=== PATIENT | female | born 1970 | race Caucasian/White ===

== ENCOUNTER 2016-12-02 13:49 | Emergency (ER) | payer OTHER ==
[~2016-12-02] VITALS: Ht 165.1 cm; Wt 69.6 kg
[~2016-12-02 13:49] MED LIST: AGM875 PO; BCPILLS PO; CLX20 PO
[2016-12-02 13:55] VITALS: BP 140/83; PULSE 81; TEMP 36.9; O2SAT 98; Ht 165.1 cm; Wt 69.6 kg
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
== END 2016-12-02 14:25 | disposition home or self-care (01) ==
LOC: C.EDB 13:51 → C.EDC 14:25
DX: T81.4XXA Infection following a procedure, initial encounter (principal); T20.00XA Burn of unspecified degree of head, face, and neck, unspecified site, initial encounter; X19.XXXA Contact with other heat and hot substances, initial encounter; Z79.899 Other long term (current) drug therapy

== ENCOUNTER 2019-01-01 10:45 | Inpatient (IN) ==
[2019-01-01] MEDS ORDERED: AMPICILLIN/SULBACTAM SOD 3,000 MG in 0.9 % SODIUM CHLORIDE 100 ML IV STA (11:04)
[2019-01-01] MEDS ORDERED: SODIUM CHLORIDE 0.9% 1000ML 500 ML IV ONE (11:04)
[2019-01-01] MEDS ORDERED: ONDANSETRON INJ 2 MG/ML 2 ML VIAL IV STA (11:09)
[2019-01-01] MEDS ORDERED: MoRPHine SULFATE 4 MG/ML 1 ML CARP\\VIAL IV STA (11:09)
[2019-01-01 11:21] LABS: Hematocrit (blood only) 27.6 % (37-47); Hemoglobin 9.1 g/dL (12.0-16.0); Mean Corpuscular Hemoglobin 28.5 pg (25-34); Mean Corpuscular Volume 86.5 fL (80-100); Mean Platelet Volume 9.2 fL (7.4-10.4); Platelet Count 134 K/uL (130-400); RDW Coefficient of Variation 15.6 % (11.5-14.5); RDW Standard Deviation 47.7 fL (36.4-46.3); Red Blood Count 3.19 M/uL (4.2-5.4)
[2019-01-01 11:38] LABS: Albumin Level 3.9 gm/dl (3.4-5.0); BUN Creatinine Ratio 12.4 (10-20); Calcium 9.1 mg/dl (8.5-10.1); Creatinine Clr Calc Pharmacy 60.6 ml/min; Est GFR (African American) 79.5; Est GFR (Non-African American) 68.6; Potassium 3.7 mmol/L (3.5-5.1)
[2019-01-01 11:40] LABS: Bilirubin,Total 0.4 mg/dl (0.2-1); Globulin 3.8 gm/dl (2.5-4.0); Total Protein 7.7 gm/dl (6.4-8.2)
[2019-01-01 11:53] LABS: Basophils % (auto) 2.7 %; Dohle Bodies 1+; Immature Granulocytes # (auto) 0.05 K/uL (0.00-0.02); Immature Granulocytes % (auto) 1.4 %; Lymphocytes # (auto) 0.58 K/uL (1.2-3.4); Lymphocytes % (auto) 15.7 %; Monocytes # (auto) 0.63 K/uL (0.11-0.59); Neutrophils # (auto) 2.34 K/uL (1.4-6.5); Neutrophils % (auto) 63.2 %
--- NOTE | 2019-01-01 12:28 | XRay Report ---
RIGHT HAND 3 VIEWS HISTORY: Cat bite with infection COMPARISON: None. FINDINGS: There is no fracture or dislocation. Diffuse soft tissue swelling throughout the hand. Smal l superficial lucency along the dorsum of the hand which could represent a laceration. No radiopaque foreign bodies. IMPRESSION: Diffuse soft tissue swelling throughout the hand with a small superficial lucency along the dorsum of the hand which could represent a small laceration. Electronically signed by: Zeeshan Giron M.D. 01/01/2019 12:27 PM
[2019-01-01] MEDS ORDERED: MoRPHine SULFATE 2 MG/ML CARP IV STA (13:36)
[2019-01-01] MEDS ORDERED: MoRPHine SULFATE 4 MG/ML 1 ML CARP\\VIAL ONE (13:40)
--- NOTE | 2019-01-01 13:44 | History & Physical Report ---
Date of Service January 01, 2019 Assessment & Plan (1) Cat bite of hand: Received Unasyn in the emergency department We will continue with Unasyn on the floor [place] home dose for pain; Toradol for moderate pain; morphine for severe pain Orthopedics consulted for routine consult Serial labs (2) Breast cancer, left breast: Diagnosed in September [address] David Austin and Dr. Miguelina Harding Chemotherapy per Dr. 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 Panchal from neurology Most recent MRI from 2013 (5) Anemia: Slight drop in hemoglobin to 9.1 from his previous labs as an outpatient Most likely secondary to recent chemotherapy No acute blood loss We will follow daily CBC and trend (6) DVT prophylaxis: Enoxaparin 40 mg daily secondary to current cancer Ambulate as tolerated Please refer to Dr. Jimenez's addendum for further recommendations History of Present Illness Attending: Dr. Jimenez This is a 48-year-old female with a history of left breast cancer undergoing chemotherapy at this time. She also has a history of encephalitis as a child resulting in imbalance and some hearing problems. She has anxiety and depression for which she is on Celexa and BuSpar. 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 The patient is followed by Dr. Walker Lam as an outpatient for primary care and also follows Dr. David Austin for oncology. The patient presents today with a 27-hour history of Bite to the right hand. She indicates that the cat bit her and scratched her and that she treated with ice and with Tylenol since yesterday. She took no antibiotics or other medication. This morning she got up in the hand with significant more swollen and painful. She reported the emergency department and received Unasyn and morphine as well as an x-ray of the hand. The x-ray showed no foreign body. There is also no evidence of lesions requiring suturing. Ryan Lovett PA-C contacted Dr. Bardales from orthopedics who suggested admission with IV antibiotics. At this point he feels it is too early for abscess but would monitor closely. The patient denies fever, chills, sweats, rigors. She has no nausea or vomiting. She had no night chills last night. She does have significant pain to the hand and is unable to form her right hand into a fist. She was also unable to spread her fingers or close her fingers easily. She had one episode of diarrhea but no melena or hematochezia. No hx of GERD or PUD. Primary Care Provider: Walker Lam MD Allergies Allergy/AdvReac Type Severity Reaction Status Date / Time No Known Allergies Allergy Verified 11/18/09 08:20 Home Medications Home Medications Medication Instructions Recorded Confirmed Type Control Pills 1 tab PO DAILY #0 11/04/09 01/01/19 History Citalopram (Celexa *) 30 mg PO DAILY #0 11/04/09 01/01/19 History buspirone 5 mg PO DAILY 01/01/19 01/01/19 History hydroxyzine HCl 25 mg PO DAILY 01/01/19 01/01/19 History prochlorperazine maleate 10 mg PO DAILY 01/01/19 01/01/19 History sulindac 200 mg PO DAILY 01/01/19 01/01/19 History Past Med/Surg History Medical History Anxiety and depression Breast cancer History of encephalitis Situational hypertension Surgical History History of lumpectomy Family History Grandmother (Maternal) Breast cancer Social History Preferred Language: Persian Communication Ability: Effective Merchandising Assistant Required: No Beliefs That Will Affect Care: None marital status: Current Living Situation: Spouse and Family Current Living Situation Comment: and 2 sons Feels Safe at Home: Yes Safety Concerns: Feels Safe At This Time Smoking Status: Never smoker Hx Alcohol Use: No Hx Substance Use: No Review of Systems Review of Systems: All systems reviewed & are unremarkable except as noted in HPI & below Physical Exam Physical Exam: GENERAL : No acute distress. Pleasant EYES: No icterus, gaze conjugate. Pupils equal round reactive to light NOSE: No evidence of epistaxis. MOUTH: No lesions or candidiasis. No dentures. Tongue midline. Mucosa moist. NECK: Supple. No stridor or carotid bruits appreciated LUNGS: CTA B/L, no wheezes, rales or rhonchi. Good inspiratory effort. Equal breath sounds in the bases. HEART: Regular, rate controlled. No murmurs gallops or rubs ABDOMEN: Soft, NT, ND, BS Present. EXTREMITIES: No LE edema, pedal pulses intact intact and equal bilaterally. Ri ght hand swollen and evidence of recent injury from cat bite. Patient is able to move all 5 digits but unable to close hand completely. Flexion extension of the fingers is incomplete but patient does have good dexterity with rapid only movements of the fingers. Pulses are intact and equal bilaterally to upper extremities at the radial artery. No evidence of cyanosis on the right fingertips. Good capillary refill on all 5 fingertips on the right hand. NEURO: A&OX3. No focal deficits appreciated Results & Data Vital Signs (Past 12 Hours) Vital Signs Temp Pulse Pulse Resp BP BP Pulse Ox 01/01/19 13:37 76 18 109/71 99 01/01/19 10:49 36.9 C 81 20 101/71 100 Laboratory Results 01/01/19 11:10 01/01/19 11:10 Diagnostic Findings RIGHT HAND 3 VIEWS HISTORY: Cat bite with infection COMPARISON: None. FINDINGS: There is no fracture or dislocation. Diffuse soft tissue swelling throughout the hand. Small superficial lucency along the dorsum of the hand which could represent a laceration. No radiopaque foreign bodies. IMPRESSION: Diffuse soft tissue swelling throughout the hand with a small superficial lucency along the dorsum of the hand which could represent a small laceration. Electronically signed by: Zeeshan Giron M.D. 01/01/2019 12:27 PM Code Status & VTE Plan Code Status Full resuscitation VTE Prophylaxis Plan VTE Prophylaxis will be ordered: Yes Supervising Physician Co-Signing Physician Notes HISTORY: Record reviewed. Patient interviewed and examined. Care coordinated with Hakeem Spangler PA-C. Please refer to his documentation for complete history. Briefly, 48-year-old female undergoing chemotherapy for recently diagnosed carcinoma of the breast. Bitten by domestic cat on the right hand yesterday. The cat's vaccinations are current. Patient had a TD booster in 2018. Worsening pain and swelling of dorsum of right hand today. No fever. Came to ED for evaluation because of worsening symptoms. EXAM: General- no distress Extremities- puncture wounds, erythema, swelling of dorsum of right hand; no lymphangitic spread Neuro- alert, oriented DATA: Hemoglobin 9.1, white count 3700, platelet count 134,000. Normal electrolytes, BUN 12, creatinine 0.97, glucose 125. Serum lactate 1.93. Other lab studies as noted. X-ray of right hand demonstrated diffuse soft tissue swelling throughout the hand with a small superficial lucency along the dorsum of the hand. ASSESSMENT AND PLAN: Cat bite right hand with cellulitis. Does not appear to be septic. Blood cultures obtained. Parenteral antibiotic therapy with intravenous ampicillin/sulbactam initiated. Orthopedic Surgery consulted. Patient is up-to-date on TD booster. Hematology/oncology notified of admission. Please refer to WOLFGANG Spangler's documentation for discussion of other issues.
--- NOTE | 2019-01-01 14:26 | Emergency Department Note ---
History of Present Illness General Chief complaint: Animal Bite Stated complaint: CAT BITE TO RT HAND Time Seen by Provider: 01/01/19 10:55 History of Present Illness Maximum Pain Intensity: 2 48-year-old female who presents the emergency department for evaluation of progressively worsening redness, swelling and pain of the right hand. The patient reports that she was bitten by her cat early yesterday morning. She reports that by evening, there was swelling and redness present. The patient reports significant worsening symptoms this morning. She went to the [facility] [place] who sent her to the emergency department for further evaluation. She reports that the cat is strictly indoors, and immunizations are up-to-date. The patient does have a history of breast cancer, and is between chemotherapy sessions. The patient's tetanus immunization is up-to-date. Home Medications Home Medications Medication Instructions Recorded Confirmed Type Control Pills 1 tab PO DAILY #0 11/04/09 01/01/19 History Citalopram (Celexa *) 30 mg PO DAILY #0 11/04/09 01/01/19 History buspirone 5 mg PO DAILY 01/01/19 01/01/19 History hydroxyzine HCl 25 mg PO DAILY 01/01/19 01/01/19 History prochlorperazine maleate 10 mg PO DAILY 01/01/19 01/01/19 History sulindac 200 mg PO DAILY 01/01/19 01/01/19 History Allergies Allergy/AdvReac Type Severity Reaction Status Date / Time No Known Allergies Allergy Verified 11/18/09 08:20 Past Med/Surg History Medical History Anxiety and depression Breast cancer History of encephalitis Situational hypertension Surgical History History of lumpectomy Family History Grandmother (Maternal) Breast cancer Social History Preferred Language: Uzbek Communication Ability: Effective 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 Beliefs That Will Affect Care: None marital status: Current Living Situation: Spouse and Family Current Living Situation Comment: and 2 sons Feels Safe at Home: Yes Safety Concerns: Feels Safe At This Time Smoking Status: Never smoker Alcohol Use: No Hx Substance Use: No Review of Systems 10 system review was performed and was negative except for pertinent positives and negatives as indicated in history of present illness Physical Exam Vital Signs Vital Signs - 24 hr 01/01/19 10:49 01/01/19 13:37 Temperature 36.9 C Temperature Source Oral Sepsis Recent Fever Within 48 Hours No Sepsis New/Unexplained Change in Mental Status No Sepsis Action Taken by Nursing No Action Required Pulse Rate 81 Pulse Rate [Right Finger] 76 Pulse Rhythm [Right Finger] Regular Pulse Strength [Right Finger] Normal Respiratory Rate 20 18 Respiratory Effort / Characteristics Non-Labored Spontaneous Non-Labored Spontaneous Respiratory Depth Normal Normal Respiratory Pattern Regular Blood Pressure 101/71 Blood Pressure [Right Arm] 109/71 Blood Pressure Mean 81 Blood Pressure Mean [Right Arm] 83 Pulse Oximetry 100 99 Oxygen Delivery Method Room Air Room Air CONSTITUTIONAL: Healthy and well nourished. Alert and oriented X 3. Patient does not appear in any significant distress. HEENT: Normocephalic, atraumatic. Pupils equal, round and reactive. No scleral icterus or conjunctival injection/pallor. NECK: Full active range of motion without discomfort. RESPIRATORY: Clear to auscultation bilaterally with no wheezing, crackles, rhonchi or stridor. CARDIOVASCULAR: Regular rate and rhythm with no murmurs, rubs or gallops. MUSCULOSKELETAL: Examination of the right hand shows several puncture wounds on the dorsal aspect. The patient has significant erythema and edema to the extensor crease of the wrist. The patient has worsening discomfort with passive flexion and extension of the fingers, also extending to the extensor crease. No fusiform digital swelling. No purulent drainage from the wounds. No active bleeding. Capillary refill of the fingers is less than 2 seconds. INTEGUMENTARY: No rash or other significant dermatologic conditions noted. HEMATOLOGIC: No ecchymosis or petechiae. PSYCHIATRIC: Positive affect. NEUROLOGIC: Right hand and fingers are sensory intact. Course Patient history and physical exam were performed. Nurse's notes were reviewed. Vital signs were reviewed. Blood pressure, temperature and O2 saturation in triage was normal. After physical exam, I expressed my concern for a significant infection in the presence of cancer treatment and chemotherapy. I explained that her condition would probably warrant admission. The patient was in agreement and voiced understanding of my concerns. IV access was established, and labs were drawn. The patient was administered a normal saline 1 L bolus, along with IV morphine and Zofran for pain. Review of labs shows leukopenia without neutropenia. Hemoglobin is 9.1. CMP is otherwise grossly normal. Kilri-tw-hekr lactate was mildly elevated. Blood cultures x2 were collected. X-rays of the right hand did not show any radiopaque foreign bodies, fractures or dislocations. The patient was administered Unasyn 3 g IV infusion. The case was further discussed with Dr. Dukes, ED attending physician, who agrees with orthopedic and hospitalist consultation. I initially discussed the case with Dr. Bardales who does not feel that surgical intervention would be needed at this point. He did recommend hospitalist admission and management, consulting him for further orthopedic management. The case was then discussed with the [facility] hospitalist service (Hakeem Spangler PA-C), who [facility]. Please see the hospitalist service notes and orthopedic progress notes for further treatment and final disposition. The patient remained hemodynamically stable and afebrile while in the emergency department. Administered Medications Enoxaparin Sodium (Lovenox) 40 mg SQ Q24H LOBITO Stop: 01/31/19 16:29 Last Admin: 01/01/19 16:49 Dose: 40 mg Documented by: [id number] Ampicillin Sodium/Sulbactam Sodium 3,000 mg/ Sodium Chloride 108 mls @ 200 mls/hr IV Q6H [facility]; Protocol Stop: 01/11/19 17:59 Last Admin: 01/01/19 17:45 Dose: 200 mls/hr Documented by: [id number] Discontinued Medications Ampicillin Sodium/Sulbactam Sodium 3,000 mg/ Sodium Chloride 108 mls @ 200 mls/hr IV NOW STA Stop: 01/01/19 11:36 Last Infusion: 01/01/19 14:31 Dose: 0 mls/hr Documented by: [id number] Admin: 01/01/19 12:12 Dose: 200 mls/hr Documented by: [id number] Sodium Chloride (Nss 1000ml) 500 mls @ 999 mls/hr IV .Q31M ONE Stop: 01/01/19 11:34 Last Infusion: 01/01/19 12:13 Dose: 0 mls/hr Documented by: [id number] Admin: 01/01/19 11:28 Dose: 999 mls/hr Documented by: [id number] Morphine Sulfate (Morphine Sulfate) 4 mg IV NOW STA Stop: 01/01/19 11:10 Last Admin: 01/01/19 11:20 Dose: 4 mg Documented by: [id number] Morphine Sulfate (Morphine Sulfate) 2 mg IV NOW STA Stop: 01/01/19 13:37 Last Admin: 01/01/19 14:32 Dose: Not Given Documented by: [id number] Morphine Sulfate (Morphine Sulfate) Confirm Administered Dose 4 mg .ROUTE .STK- MED ONE Stop: 01/01/19 13:41 Last Admin: 01/01/19 13:43 Dose: 2 mg Documented by: [id number] Ondansetron HCl (Zofran) 4 mg IV NOW STA Stop: 01/01/19 11:10 Last Admin: 01/01/19 11:20 Dose: 4 mg Documented by: [id number] Medical Decision Making Medical Records Attestation: I reviewed the patient's medical records. Home Medications Current Medication List: was personally reviewed by me Laboratory Data Attestation: I reviewed the patient's lab results. Result diagrams: 01/01/19 11:10 01/01/19 11:10 Lab Results 01/01/19 01/01/19 01/01/19 Range/Units 11:10 11:10 11:10 WBC 3.70 L (4.8-10.8) K/uL RBC 3.19 L (4.2-5.4) M/uL Hgb 9.1 L (12.0-16.0) g/dL Hct 27.6 L (37-47) % MCV 86.5 (80-100) fL MCH 28.5 (25-34) pg MCHC 33.0 (32-36) g/dL RDW Std Deviation 47.7 H (36.4-46.3) fL RDW Coeff of Patricio 15.6 H (11.5-14.5) % Plt Count 134 (130-400) K/uL MPV 9.2 (7.4-10.4) fL Immature Gran % (Auto) 1.4 % Neut % (Auto) 63.2 % Lymph % (Auto) 15.7 % Glades % (Auto) 17.0 % Eos % (Auto) 0.0 % Baso % (Auto) 2.7 % Immature Gran # (Auto) 0.05 H (0.00-0.02) K/uL Neut # (Auto) 2.34 (1.4-6.5) K/uL Lymph # (Auto) 0.58 L (1.2-3.4) K/uL Glades # (Auto) 0.63 H (0.11-0.59) K/uL Eos # (Auto) 0.00 (0-0.5) K/uL Baso # (Auto) 0.10 (0-0.2) K/uL Hyposegmented Neuts 1+ Dohle Bodies 1+ ESR 52 H (0-21) mm/hr Sodium 136 (136-145) mmol/L Potassium 3.7 (3.5-5.1) mmol/L Chloride 107 (98-107) mmol/L Carbon Dioxide 27 (21-32) mmol/L Anion Gap 2.0 L (3-11) BUN 12 (7-18) mg/dl Creatinine 0.97 (0.6-1.2) mg/dl Est Cr Clr Drug Dosing 60.6 ml/min Est GFR ( Amer) 79.5 Est GFR (Non-Af Amer) 68.6 BUN/Creatinine Ratio 12.4 (10-20) Glucose 125 H (70-99) mg/dl POC Lactic Acid Marcell (0.90-1.70) mmol/L Calcium 9.1 (8.5-10.1) mg/dl Total Bilirubin 0.4 (0.2-1) mg/dl AST 32 (15-37) U/L ALT 59 (12-78) U/L Alkaline Phosphatase 110 (45-117) U/L C-Reactive Protein (0-0.29) mg/dl Total Protein 7.7 (6.4-8.2) gm/dl Albumin 3.9 (3.4-5.0) gm/dl Globulin 3.8 (2.5-4.0) gm/dl Albumin/Globulin Ratio 1.0 (0.9-2) 01/01/19 01/01/19 Range/Units 11:10 11:19 WBC (4.8-10.8) K/uL RBC (4.2-5.4) M/uL Hgb (12.0-16.0) g/dL Hct (37-47) % MCV (80-100) fL MCH (25-34) pg MCHC (32-36) g/dL RDW Std Deviation (36.4-46.3) fL RDW Coeff of Patricio (11.5-14.5) % Plt Count (130-400) K/uL MPV (7.4-10.4) fL Immature Gran % (Auto) % Neut % (Auto) % Lymph % (Auto) % Glades % (Auto) % Eos % (Auto) % Baso % (Auto) % Immature Gran # (Auto) (0.00-0.02) K/uL Neut # (Auto) (1.4-6.5) K/uL Lymph # (Auto) (1.2-3.4) K/uL Glades # (Auto) (0.11-0.59) K/uL Eos # (Auto) (0-0.5) K/uL Baso # (Auto) (0-0.2) K/uL Hyposegmented Neuts Dohle Bodies ESR (0-21) mm/hr Sodium (136-145) mmol/L Potassium (3.5-5.1) mmol/L Chloride (98-107) mmol/L Carbon Dioxide (21-32) mmol/L Anion Gap (3-11) BUN (7-18) mg/dl Creatinine (0.6-1.2) mg/dl Est Cr Clr Drug Dosing ml/min Est GFR ( Amer) Est GFR (Non-Af Amer) BUN/Creatinine Ratio (10-20) Glucose (70-99) mg/dl POC Lactic Acid Marcell 1.93 H (0.90-1.70) mmol/L Calcium (8.5-10.1) mg/dl Total Bilirubin (0.2-1) mg/dl AST (15-37) U/L ALT (12-78) U/L Alkaline Phosphatase (45-117) U/L C-Reactive Protein 5.75 H (0-0.29) mg/dl Total Protein (6.4-8.2) gm/dl Albumin (3.4-5.0) gm/dl Globulin (2.5-4.0) gm/dl Albumin/Globulin Ratio (0.9-2) Imaging Data Attestation: I personally reviewed and interpreted this imaging study as follows: My Impression: My interpretation of right hand x-rays does not show any radiopaque foreign bodies, fractures or dislocations/subluxations. Radiologist report was also reviewed. Radiologist's Impression: RIGHT HAND 3 VIEWS HISTORY: Cat bite with infection COMPARISON: None. FINDINGS: There is no fracture or dislocation. Diffuse soft tissue swelling throughout the hand. Small superficial lucency along the dorsum of the hand which could represent a laceration. No radiopaque foreign bodies. IMPRESSION: Diffuse soft tissue swelling throughout the hand with a small superficial lucency along the dorsum of the hand which could represent a small laceration. Blood Pressure Blood Pressure Findings: Normal blood pressure MDM Narrative Patient presents the emergency department with an infection of her right hand from a cat bite that occurred yesterday morning. The patient is immunosuppressed secondary to hemotherapy for breast cancer. I am concerned for possible developing extensor tenosynovitis. At the point of my examination, I do not suspect that the patient is septic, although she has a slightly elevated lactate. She is currently afebrile and normotensive while in the emergency department. The patient was administered IV Unasyn antibiotics. Impression & Plan Cat bite of right hand with infection, Breast cancer Discharge Plan Visit Data *Final* Discharge Date/Time: 01/01/19 15:28 Chief Complaint: Animal Bite Stated Complaint: CAT BITE TO RT HAND ED Provider: Eduard Dukes ED Midlevel Provider: Aleksandar Lovett Discharge Problem: Cat bite of right hand with infection, Breast cancer Patient Disposition: Admitted As Inpatient Discharge Instructions Interventions: ED Discharge Assessment Last Done: 01/01/19 15:28
[2019-01-01] MEDS ORDERED: MAGNESIUM HYDROXIDE SUSP 30 ML UDC PO PRN (16:00)
[2019-01-01] MEDS ORDERED: ONDANSETRON INJ 2 MG/ML 2 ML VIAL IV PRN (16:00)
[2019-01-01] MEDS ORDERED: POLYETHYLENE (MIRALAX) 17 GM PACK PO PRN (16:00)
[2019-01-01] MEDS ORDERED: MoRPHine SULFATE 4 MG/ML 1 ML CARP\\VIAL IV PRN (16:00)
[2019-01-01] MEDS ORDERED: KETOROLAC TROMETHAMINE 15 MG/ML VIAL IV PRN (16:00)
[2019-01-01] MEDS ORDERED: HYDROCODONE/ACETAMOPHEN 5/325MG TAB PO PRN (16:00)
[2019-01-01] MEDS ORDERED: ACETAMINOPHEN 325 MG TAB PO PRN (16:00)
[2019-01-01] MEDS: ENOXAPARIN INJ 40 MG/0.4 ML SYR SQ SCH (16:49)
[2019-01-01] MEDS: AMPICILLIN/SULBACTAM SOD 3,000 MG in 0.9 % SODIUM CHLORIDE 100 ML IV SCH (17:45)
[2019-01-01] MEDS ORDERED: LACTATED RINGER'S 1,000 ML IV SCH (20:15)
[2019-01-02] MEDS: AMPICILLIN/SULBACTAM SOD 3,000 MG in 0.9 % SODIUM CHLORIDE 100 ML IV SCH ×4 (00:51→16:59)
[2019-01-02] MEDS: HEPARIN 100 UNIT/ML 5ML FLUSH FLUSH PRN ×2 (05:55→23:43)
[2019-01-02 06:38] LABS: Basophils # (auto) 0.12 K/uL (0-0.2); Basophils % (auto) 2.8 %; Eosinophils # (auto) 0.02 K/uL (0-0.5); Eosinophils % (auto) 0.5 %; Hematocrit (blood only) 22.7 % (37-47); Hemoglobin 7.5 g/dL (12.0-16.0); Immature Granulocytes # (auto) 0.08 K/uL (0.00-0.02); Immature Granulocytes % (auto) 1.9 %; Lymphocytes # (auto) 0.51 K/uL (1.2-3.4); Lymphocytes % (auto) 12.1 %; Mean Corpuscular Hemoglobin 28.7 pg (25-34); Mean Platelet Volume 9.4 fL (7.4-10.4); Monocytes # (auto) 0.78 K/uL (0.11-0.59); Monocytes % (auto) 18.4 %; Neutrophils # (auto) 2.72 K/uL (1.4-6.5); Neutrophils % (auto) 64.3 %; Platelet Count 126 K/uL (130-400); RDW Coefficient of Variation 16.1 % (11.5-14.5); RDW Standard Deviation 49.1 fL (36.4-46.3); Red Blood Count 2.61 M/uL (4.2-5.4); White Blood Count 4.23 K/uL (4.8-10.8)
--- NOTE | 2019-01-02 06:39 | Hospitalist Progress Note ---
Date of Service January 02, 2019 Assessment & Plan (1) Cat bite of hand: (2) Breast cancer, left breast: (3) Situational hypertension: (4) History of encephalitis: (5) Anemia: (6) DVT prophylaxis: Continue Abx, Ortho to see, one more night of IV Unasyn, DC on Augmentin x 10 days if no surgery needed. ROS-No Headache, No Visual Changes, No Nausea, No Vomiting, No Fever, No Chills, No Neck Pain or Stiffness, No Chest Pain, No Palpitations, No SOB, No ZHENG, No Cough, No Sputum, No Wheezing, No Abdominal Pain, No Diarrhea, No Hematemesis, No Hemoptysis, No Unexpected Weight Loss, No Flank pain, No Melena, No Hematochezia, No Frequency, No Urgency, No Burning, No Hematuria, No Rashes, No Diaphoresis. Appetite is Normal, c/o R Hand pain and swelling Physical Exam Gen-AAO x 3, NAD, Afebrile Head-NCAT, EOMI, PERRLA, Anicteric Sclera, No Posterior Pharyngeal Erythema Neck-Supple, No JVD, No Thyromegaly, No Masses, No LAD, No Bruits Lungs-Clear to Auscultation Bilaterally, No Rales, No Rhonchi, No Wheezing, No Crepitus Chest-No S4, +S1, +S2, No S3, No Murmurs, No Rubs, No Gallops, No Ectopy Abdomen-Soft, Bowel Sounds Present, Non Tender, Non Distended, No Hepatomegaly, No Splenomegaly, No Palpable Masses, No Rebound, No Rigidity, No Guarding Musculoskeletal-Full Range of Motion Bilaterally, No CVAT Extremities-No Cyanosis, No Clubbing, + R Hand Edema and tenderness, Dec ROM R Hand, Multiple deep scratches Nuero-Cranial Nerves II-XII grossly intact, Motor WNL, DTRs WNL, Strength WNL, Non Focal Psych-Normal Mood Labs checked Results & Data Vital Signs (Past 12 Hours) Vital Signs Temp Pulse Resp BP BP Pulse Ox 01/02/19 04:53 37.1 C 97 H 18 96/62 L 98 01/01/19 22:49 37.6 C H 108 H 18 111/69 97 01/01/19 19:30 36.8 C 102 H 21 89/58 L 100
[2019-01-02 07:13] LABS: BUN Creatinine Ratio 13.2 (10-20); Calcium 8.6 mg/dl (8.5-10.1); Creatinine Clr Calc Pharmacy 81.6 ml/min; Est GFR (Non-African American) 98.3; Potassium 3.6 mmol/L (3.5-5.1)
[2019-01-02 07:32] LABS: Dohle Bodies 1+; Toxic Granulation 1+
[2019-01-02] MEDS: PROCHLORPERAZINE MALEATE 10 MG TAB PO SCH (07:42)
[2019-01-02] MEDS: SULINDAC 200 MG TAB PO SCH (07:42)
[2019-01-02] MEDS: CITALOPRAM 20 MG TAB PO SCH (07:43)
--- NOTE | 2019-01-02 09:22 | Consultation Report ---
DATE OF CONSULTATION: 01/02/2019 ORTHOPEDIC CONSULTATION CHIEF COMPLAINT: Right hand cat bite injury. HISTORY OF PRESENT ILLNESS: The patient is a 48-year-old right hand dominant female who is now about 48 hours from a cat bite injury to her dorsal aspect of her right hand. She is currently undergoing treatment for breast cancer, on chemotherapy and immunocompromised. She is stating this bite about 2 days ago. She presented to the Emergency Room last night, was admitted for antibiotic treatment. No other injuries. She has been placed on Unasyn. She thinks she has made some improvements over the past 12 hours since being admitted. No new complaints. PAST MEDICAL HISTORY: Per the admission H and P. OBJECTIVE: VITAL SIGNS: Temperature 37.2. Vital signs stable. GENERAL: Shows a pleasant, middle-aged female. Lying in bed, looks comfortable. EXTREMITIES: Examination of the right hand reveals multiple scabbed wounds in the back of her right hand with some moderate swelling and a little bit of red hue to it. There is no fluctuance. There are no wounds on the palmar aspect of her hand. She can fully extend her fingers. She can make probably 50%-75% of a full fist with some fairly mild discomfort. Just some diffuse edema. No fluctuance. No signs of pus or purulence. X-RAYS: X-rays of the right hand reveals some soft tissue swelling. No signs of foreign body. LABORATORIES: Her white blood cell count this morning is 4.23, hemoglobin 7.5, hematocrit 22.7. Her sed rate from yesterday was 52. Her C-reactive protein is 5.75. ASSESSMENT AND PLAN: A 48-year-old female on chemotherapy, now about 2 days out from a dorsal cat bite injury to her hand. She does have some moderate swelling and some very mild cellulitis. No signs of pus or purulence at this point, but it would be early to see anything like that. This most likely will respond to IV antibiotics. If she develops a pus pocket or purulence, then that is an indication for surgical drainage. Cellulitis is an antibiotic management issue. We will continue to follow her daily. Any orthopedic questions can be directed to me at [phone]. We may consider some IV Toradol while in the hospital to decrease her inflammation.
[2019-01-02 16:21] LABS: Hematocrit (blood only) 21.4 % (37-47); Hemoglobin 7.3 g/dL (12.0-16.0)
[2019-01-02] MEDS: ENOXAPARIN INJ 40 MG/0.4 ML SYR SQ SCH (16:59)
[2019-01-02 23:53] LABS: Hematocrit (blood only) 22.1 % (37-47); Hemoglobin 7.4 g/dL (12.0-16.0)
[2019-01-03] MEDS: AMPICILLIN/SULBACTAM SOD 3,000 MG in 0.9 % SODIUM CHLORIDE 100 ML IV SCH ×4 (00:37→17:21)
[2019-01-03] MEDS: HEPARIN 100 UNIT/ML 5ML FLUSH FLUSH PRN ×2 (05:33→15:46)
[2019-01-03 06:16] LABS: Basophils # (auto) 0.11 K/uL (0-0.2); Basophils % (auto) 1.8 %; Eosinophils # (auto) 0.06 K/uL (0-0.5); Hematocrit (blood only) 21.3 % (37-47); Hemoglobin 7.1 g/dL (12.0-16.0); Immature Granulocytes # (auto) 0.31 K/uL (0.00-0.02); Lymphocytes # (auto) 0.44 K/uL (1.2-3.4); Mean Corpuscular Hemoglobin 28.9 pg (25-34); Mean Corpuscular Hgb Conc 33.3 g/dL (32-36); Mean Corpuscular Volume 86.6 fL (80-100); Mean Platelet Volume 8.8 fL (7.4-10.4); Monocytes # (auto) 0.83 K/uL (0.11-0.59); Monocytes % (auto) 13.3 %; Neutrophils % (auto) 71.9 %; Nucleated RBC # (auto) 0.02 K/uL (0-0); Nucleated RBC % (auto) 0.3 %; Platelet Count 134 K/uL (130-400); RDW Coefficient of Variation 15.9 % (11.5-14.5); RDW Standard Deviation 49.4 fL (36.4-46.3); Red Blood Count 2.46 M/uL (4.2-5.4); White Blood Count 6.25 K/uL (4.8-10.8)
[2019-01-03 06:44] LABS: Dohle Bodies 2+; Giant Platelets 1+; Polychromasia 1+; Toxic Granulation 1+
--- NOTE | 2019-01-03 06:45 | Discharge Summary ---
Date of Service January 03, 2019 Admission HPI Per [place]mitting [place] [address] History & Physical Report Signed Patient: Gonzalez SHAW Date: 01/01/19 MR#: [id number] Phy: Ignacio Sevilla DO Acct ID:[id number] Phy: Walker Lam MD Date: 1970Fam Phy: Age: 48Location: 2N Sex: F Room/Bed: [facility] [place] cc: ~ *NOTICE TO RECEIVING CONSTITUTION PARTY/AGENCY This information is strictly Confidential and protected under [place] law. [place] law prohibits you from making any further disclosure of this information unless further disclosure is expressly permitted by the written consent of the person to whom it pertains or is authorized by law. A general authorization for the release of medical or other information is not sufficient for this purpose. Hospital accepts no responsibility if the information is made available to any other person, INCLUDING THE PATIENT. Date of Service January 01, 2019 Assessment & Plan (1) Cat bite of hand: Received Unasyn in the emergency department We will continue with Unasyn on the floor Murray home dose for pain; Toradol for moderate pain; morphine for severe pain Orthopedics consulted for routine consult Serial labs (2) Breast cancer, left breast: Diagnosed in September [address] David Austin and Dr. Miguelina Harding Chemotherapy per Dr. 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 Panchal from neurology Most recent MRI from 2013 (5) Anemia: Slight drop in hemoglobin to 9.1 from his previous labs as an outpatient Most likely secondary to recent chemotherapy No acute blood loss We will follow daily CBC and trend (6) DVT prophylaxis: Enoxaparin 40 mg daily secondary to current cancer Ambulate as tolerated Please refer to Dr. Jimenez's addendum for further recommendations History of Present Illness Attending: Dr. Jimenez This is a 48-year-old female with a history of left breast cancer undergoing chemotherapy at this time. She also has a history of encephalitis as a child resulting in imbalance and some hearing problems. She has anxiety and depression for which she is on Celexa and BuSpar. 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 The patient is followed by Dr. Walker Lam as an outpatient for primary care and also follows Dr. David Austin for oncology. The patient presents today with a 27-hour history of Bite to the right hand. She indicates that the cat bit her and scratched her and that she treated with ice and with Tylenol since yesterday. She took no antibiotics or other medication. This morning she got up in the hand with significant more swollen and painful. She reported the emergency department and received Unasyn and morphine as well as an x-ray of the hand. The x-ray showed no foreign body. There is also no evidence of lesions requiring suturing. Ryan Lovett PA-C contacted Dr. Bardales from orthopedics who suggested admission with IV antibiotics. At this point he feels it is too early for abscess but would monitor closely. The patient denies fever, chills, sweats, rigors. She has no nausea or vomiting. She had no night chills last night. She does have significant pain to the hand and is unable to form her right hand into a fist. She was also unable to spread her fingers or close her fingers easily. She had one episode of diarrhea but no melena or hematochezia. No hx of GERD or PUD. Admission Exam Per Admitting Provider GENERAL : No acute distress. Pleasant EYES: No icterus, gaze conjugate. Pupils equal round reactive to light NOSE: No evidence of epistaxis. MOUTH: No lesions or candidiasis. No dentures. Tongue midline. Mucosa moist. NECK: Supple. No stridor or carotid bruits appreciated LUNGS: CTA B/L, no wheezes, rales or rhonchi. Good inspiratory effort. Equal breath sounds in the bases. HEART: Regular, rate controlled. No murmurs gallops or rubs ABDOMEN: Soft, NT, ND, BS Present. EXTREMITIES: No LE edema, pedal pulses intact intact and equal bilaterally. Right hand swollen and evidence of recent injury from cat bite. Patient is able to move all 5 digits but unable to close hand completely. Flexion extension of the fingers is incomplete but patient does have good dexterity with rapid only movements of the fingers. Pulses are intact and equal bilaterally to upper extremities at the radial artery. No evidence of cyanosis on the right fingertips. Good capillary refill on all 5 fingertips on the right hand. NEURO: A&OX3. No focal deficits appreciated Principal Diagnosis Infected hand from Cat Bite Breast CA Anemia-Likely from Chemo Discharge Exam Physical Exam Gen-AAO x 3, NAD, Afebrile Head-NCAT, EOMI, PERRLA, Anicteric Sclera, No Posterior Pharyngeal Erythema Neck-Supple, No JVD, No Thyromegaly, No Masses, No LAD, No Bruits Lungs-Clear to Auscultation Bilaterally, No Rales, No Rhonchi, No Wheezing, No Crepitus Chest-No S4, +S1, +S2, No S3, No Murmurs, No Rubs, No Gallops, No Ectopy Abdomen-Soft, Bowel Sounds Present, Non Tender, Non Distended, No Hepatomegaly, No Splenomegaly, No Palpable Masses, No Rebound, No Rigidity, No Guarding Musculoskeletal-Full Range of Motion Bilaterally, No CVAT Extremities-No Cyanosis, No Clubbing, +R Hand Edema and tenderness, Dec ROM R Hand, Multiple deep scratches-All improving Nuero-Cranial Nerves II-XII grossly intact, Motor WNL, DTRs WNL, Strength WNL, Non Focal Psych-Normal Mood Discharge Data Allergies Allergy/AdvReac Type Severity Reaction Status Date / Time No Known Allergies Allergy Verified 11/18/09 08:20 Consultations 01/01/19 13:11 ED Decision to Admit Stat 01/01/19 16:00 Consult Orthopedic Surgery Routine Current Diagnoses Malignant neoplasm of unspecified site of left female breast (01/01/19) Anemia, unspecified (01/01/19) Elevated blood-pressure reading, without diagnosis of hypertension (01/01/19) Open bite of unspecified hand, initial encounter (01/01/19) Bitten by cat, initial encounter (01/01/19) Encounter for prophylactic measures, unspecified (01/01/19) Personal history of infections of the central nervous system (01/01/19) Allergies No Known Allergies Allergy (Verified 11/18/09 08:20) Height/Weight/Isolation Height 5 ft 4 in Weight 59 kg Chemistry 01/01/19 01/02/19 11:10 05:55 Sodium 136 138 Potassium 3.7 3.6 Chloride 107 106 Carbon Dioxide 27 28 Anion Gap 2.0 L 5.0 BUN 12 10 Creatinine 0.97 0.72 Glucose 125 H 94 Microbiology 01/01/19 11:35 Blood Aerobic Blood Culture - Preliminary No growth in Aerobic bottle after 24 hours. 01/01/19 11:35 Blood Anaerobic Blood Culture - Preliminary No growth in Anaerobic bottle after 24 hours. 01/01/19 11:37 Blood Aerobic Blood Culture - Preliminary No growth in Aerobic bottle after 24 hours. 01/01/19 11:37 Blood Anaerobic Blood Culture - Preliminary No growth in Anaerobic bottle after 24 hours. Hospital Course (1) Cat bite of hand: (2) Breast cancer, left breast: (3) Situational hypertension: (4) History of encephalitis: (5) Anemia: (6) DVT prophylaxis: Continue Abx, Ortho f/u in 7-10 days, DC on Augmentin x 10 days. Check Hb at 1500, Transfuse if Hb < 7.0 Total Time Total Time Spent Total Time Spent (In Minutes): 45 mins Total Time Includes: Examination of the Patient, Discharge Planning, Medication Reconciliation and Communication With Other Providers Discharge Plan Discharge Items Patient Disposition: Home - Self-Care Reason For Visit: L HAND CAT BITE Discharge Diagnosis: Infected hand from Cat Bite Breast CA Anemia-Likely from Chemo Condition on Discharge: Good Activity: Resume your previous activity Lifting: Gradually increase as tolerated Bathing: No limitations Sexual Activity: When tolerated Exercise/Sports: Gradually increase as tolerated Driving/Machine Use: No limitations Weightbearing: Full weightbearing Non-emergency contact: Primary Care Provider and Surgeon Call non-emergency contact if: you have any medication questions and your symptoms worsen Follow-up/Referrals: Walker Lam MD [Primary Care Provider] - Diet: Regular Addtl Attending Provider Instructions: f/u c Ortho and Onc Pending Studies at Discharge: No Stand-Alone Forms: My [facility] [place], Opioid Pain Management, Work/School Release (Inpt) Medications and DC Order Prescriptions: New hydrocodone-acetaminophen [Murray] 5-325 mg Tablet 1 tab PO Q6H PRN (Reason: pain) Qty: 30 RF: 0 amoxicillin-pot clavulanate [Augmentin] 875-125 mg tablet 1 tab PO BID Qty: 20 RF: 0 Continued Control Pills tablet 1 tab PO DAILY Qty: 0 RF: 0 Citalopram (Celexa *) 40 MG tablet 30 mg PO DAILY Qty: 0 RF: 0 buspirone 5 mg tablet 5 mg PO DAILY RF: 0 prochlorperazine maleate 10 mg tablet 10 mg PO DAILY RF: 0 hydroxyzine HCl 25 mg tablet 25 mg PO DAILY RF: 0 sulindac 200 mg tablet 200 mg PO DAILY RF: 0 Discharge Orders: Discharge Order (Routine); Ordered 01/03/19 Ordered By: Ignacio Sevilla Admission Data Admit Date/Time: 01/01/19 14:24 Attending Provider: Ignacio Sevilla Admit Provider: Angelo Jimenez Primary Care Provider: Walker Lam Other Providers: Jono Bardales ; Ignacio Sevilla
[2019-01-03 06:59] LABS: BUN Creatinine Ratio 11.8 (10-20); Calcium 8.4 mg/dl (8.5-10.1); Creatinine Clr Calc Pharmacy 93.3 ml/min; Est GFR (African American) 122.1; Est GFR (Non-African American) 105.3; Potassium 3.5 mmol/L (3.5-5.1)
--- NOTE | 2019-01-03 08:56 | Progress Note ---
DATE: 01/03/2019 SUBJECTIVE: A 48-year-old female immunocompromised due to breast cancer treatment status post cat bite injury to her right hand. She is doing quite a bit better. Swelling is improved. Hand motion is improved. Pain is improved. No fevers. OBJECTIVE: VITAL SIGNS: Temperature 36.2. Vital signs stable. EXTREMITIES: Physical examination of the right hand reveals swelling to be markedly improved. She can make almost completely a full fist. Minimal tenderness. No signs of fluctuance. There is some mild residual swelling. No tenderness in the palmar aspect of her hand. She is neurologically intact. LABORATORY DATA: White cell count 6.25. Hematocrit 37.1. Electrolytes are stable. ASSESSMENT: A 48-year-old white female with underlying breast cancer on chemotherapy 3 days out from a cat bite injury doing better. Swelling is improved. No signs of pus or purulence. PLAN: At this point, I think it would be okay to transfer her to oral antibiotics and discharge her. She will need 2 weeks of p.o. antibiotics. She should wash her hand regularly several times a day. She can use her hand normally. There are no particular restrictions. If things get worse, she can call our office. She does not necessarily need orthopedic followup. Any orthopedic questions can be directed to me at [phone]. She can follow up with her primary care doctor.
[2019-01-03] MEDS: CITALOPRAM 20 MG TAB PO SCH (09:20)
[2019-01-03] MEDS: PROCHLORPERAZINE MALEATE 10 MG TAB PO SCH (09:21)
[2019-01-03] MEDS: SULINDAC 200 MG TAB PO SCH (09:21)
[2019-01-03 16:00] LABS: Hematocrit (blood only) 20.6 % (37-47)
[2019-01-03] MEDS ORDERED: SODIUM CHLORIDE 0.9% 250 ML IV PRN ×2 (16:05→16:07)
[2019-01-03] MEDS: ENOXAPARIN INJ 40 MG/0.4 ML SYR SQ SCH (17:16)
== END 2019-01-03 21:00 | disposition home or self-care (01) | DRG 605 ==
LOC: ED 10:45 → 2N 14:24